=== PATIENT | male | born 1950 | race Caucasian/White ===

== ENCOUNTER 2019-04-02 10:29 | Observation (INO) | payer OTHER ==
[~2019-04-02] VITALS: Ht 177.8 cm; Wt 86.2 kg
[2019-04-02] MEDS ORDERED: MORPHINE SULFATE 2 MG/ML 1ML SYG IVP PRN (14:15)
[2019-04-02] MEDS ORDERED: ONDANSETRON HCL 4 MG/2 ML VIAL IVP PRN (14:15)
[2019-04-02 14:41] LABS: BASOPHILS % (AUTO) 0.2 % (0.0-5.0); EOSINOPHILS % (AUTO) 0.6 % (0.0-8.0); HEMATOCRIT 49.8 % (42-54); MEAN CORPUSCULAR HEMOGLOBIN 34.3 pg (27.0-33.0); MEAN CORPUSCULAR HGB CONC 34.2 g/dL (32.0-36.0); MEAN CORPUSCULAR VOLUME 100.1 fL (79-99); MONOCYTES % (AUTO) 5.9 % (3.0-13.0); NEUTROPHILS % (AUTO) 85.3 % (40.0-77.0); NUCLEATED RED BLOOD CELLS 0.1 % (0.0-0.19); PLATELET COUNT (AUTO) 158 K/uL (130-400); RED BLOOD CELL COUNT(AUTO) 4.97 MIL/uL (4.50-6.20); RED CELL DISTRIBUTION WIDTH 12.4 % (11.0-15.5); WHITE BLOOD COUNT (AUTO) 9.7 K/uL (4.8-10.8)
[2019-04-02 14:48] LABS: CREATININE 1.1 mg/dL (0.5-1.5); CRP QUANTITATIVE 61.3 mg/L (0.00-9.0); POTASSIUM 3.9 mmol/L (3.5-5.1)
[2019-04-02 15:46] LABS: ERYTHROCYTE SEDIMENTATION RATE 10 MM/HR (0-20)
[2019-04-02 15:55] VITALS: BP 145/78
[2019-04-02] MEDS ORDERED: TRAMADOL HCL 50 MG TABLET PO PRN (17:15)
[2019-04-02] MEDS: SODIUM CHLORIDE 0.9% 1000ML 1,000 ML IV SCH (18:07)
[2019-04-02] MEDS ORDERED: CYCLOBENZAPRINE HCL 10 MG TABLET PO SCH (18:10)
[2019-04-02] MEDS ORDERED: ATOR10 PO (18:24)
[2019-04-02] MEDS ORDERED: LEVO50TA11 PO (18:24)
[2019-04-02] MEDS ORDERED: LEVO75TA10 PO (18:24)
[2019-04-02] MEDS ORDERED: LOSA100T58 PO (18:24)
[2019-04-02 19:13] VITALS: BP 105/58
--- NOTE | 2019-04-02 19:30 | NUR ---
MD DR HANSEN IN TO SEE PT. NEW ORDERS GIVEN, PLEASE REFER TO CPOE. WILL MEDICATE PT. Addendum: 04/02/19 at 2242 by JULIEN MORALES RN RN Amended: Links added.
[2019-04-02] MEDS: CYCLOBENZAPRINE HCL 10 MG TABLET PO SCH (20:00)
[2019-04-02] MEDS: DEXAMETHASONE SOD PHOSPHATE 4 MG/ML 1ML VIAL IVP SCH (20:00)
--- NOTE | 2019-04-02 20:00 | NUR ---
MEDS SHIFT ASSESSMENT DONE, PLEASE REFER TO CPOE. DUE MEDS ADMINISTERED, TOLERATED WELL. KEPT RESTED AND COMFORTABLE. CALL LIGHT WITHIN REACH. Addendum: 04/02/19 at 2302 by JULIEN MORALES RN RN Amended: Links added.
--- NOTE | 2019-04-02 22:00 | NUR ---
ROUNDS PT RESTING WELL. NO DISTRESS NOTED. KEPT COMFORTABLE IN BED. CALL LIGHT WITHIN REACH. WILL MONITOR PT.
[2019-04-02 23:52] VITALS: BP 129/90
--- NOTE | 2019-04-03 02:30 | NUR ---
ROUNDS PT SLEPT AT INTERVALS. NO CONCERNS VERBALIZED. DUE MEDS ADMINISTERED, TOLERATED WELL. KEPT COMFORTABLE. WILL MONITOR PT.
[2019-04-03] MEDS: DEXAMETHASONE SOD PHOSPHATE 4 MG/ML 1ML VIAL IVP SCH ×3 (02:31→14:00)
[2019-04-03 04:00] VITALS: BP 119/78
--- NOTE | 2019-04-03 06:15 | NUR ---
ROUNDS PCP ASSISTED PT TO THE RESTROOM THEN BACK TO BED. PT VERBALIZES FEELING BETTER. NO DISTRESS NOTED. KEPT COMFORTABLE. FOR MORE CARE.
[2019-04-03 08:00] VITALS: BP 118/92
[2019-04-03] MEDS: SODIUM CHLORIDE 0.9% 1000ML 1,000 ML IV SCH (10:54)
[2019-04-03] MEDS: CYCLOBENZAPRINE HCL 10 MG TABLET PO SCH (10:54)
--- NOTE | 2019-04-03 11:00 | NUR ---
CM NOTE IN OBS, POSS DC TODAY- WILL DEFER DETAILED CM NOTE UNLESS TRIGGERED BY RN OR PT Addendum: 04/03/19 at 1749 by RUKHSANA MAO RN CM Amended: Links added.
[2019-04-03 11:54] VITALS: BP 119/75
--- NOTE | 2019-04-03 13:49 | NUR ---
RD NOTIFICATION Primary diagnosis: Lumbar spine Radiculopathy. Hx: Compression fracture of spine, Kidney stones, HTN, Thyroid disease, Hyperlipidemia. Current diet is regular. BMI is 27.3; classified as overweight. PO is 25-50% as per pt. Labs: MCV 100, MCH 34.3, CRP 61.3. Meds: Dexamethasone, Cyclobenzaprine, Zofran, Ultram. Pt states he is having much better appetite since fecal impaction procedure. Pt stated he had not had a bowel movement for 2 weeks prior to admission and was having severe pain. Pt lost 15 lbs in the past two weeks due to poor appetite and pain. Pt is now eating better and feeling relieved. Pt LBM was on 04/02. Skin is intact, no edema present. RD recommends to change diet to Heart Healthy. RD will continue to monitor and follow up as needed. Please notify RD if any other nutritional concerns arise. Thank you. Addendum: 04/03/19 at [address] RD Amended: Links added.
== END 2019-04-03 15:38 | disposition home or self-care (01) ==
LOC: EDH 10:29 → EDHIP 13:43 → 4BH 15:28
PROVIDERS: ADMIT Internal Medicine Hematology & Oncology; ATTEND Internal Medicine Hematology & Oncology
DX: M48.56XA Collapsed vertebra, not elsewhere classified, lumbar region, initial encounter for fracture (principal); E07.9 Disorder of thyroid, unspecified; E78.5 Hyperlipidemia, unspecified; I10 Essential (primary) hypertension; K56.41 Fecal impaction; N20.0 Calculus of kidney; Z87.442 Personal history of urinary calculi; Z87.891 Personal history of nicotine dependence; Z90.89 Acquired absence of other organs
CPT/HCPCS: 36415; 72148; 80048; 85025; 85651; 86140; 96374; 96375; 96376; 99284; G0378 ×26; J1100 ×3; J7030

== ENCOUNTER → 2023-09-11 | Outpatient (CLI) | payer OTHER ==
[~2023-09-11] MED LIST: ATOR10 PO; LEVO50TA11 PO; LEVO75TA10 PO; LOSA100T59 PO
== END | disposition home or self-care (01) ==
LOC: RAH 12:55
PROVIDERS: ATTEND Student in an Organized Health Care Education/Training Program
DX: R07.89 Other chest pain (principal)
CPT/HCPCS: 93306

== ENCOUNTER → 2023-09-18 | Outpatient (CLI) | payer OTHER ==
[2023-09-18 12:12] LABS: HEMOGLOBIN A1C 5.1 % (4.0-6.0)
[2023-09-18 13:15] LABS: CHOLESTEROL 134 mg/dL (<200); HDL CHOLESTEROL 72 mg/dL (29-71); LDL DIRECT 73 mg/dL (0-99); TRIGLYCERIDES 30 mg/dL (30-200)
== END | disposition home or self-care (01) ==
LOC: LAB 08:37
PROVIDERS: ATTEND Student in an Organized Health Care Education/Training Program
DX: I10 Essential (primary) hypertension (principal); R07.89 Other chest pain; E78.2 Mixed hyperlipidemia; Z79.899 Other long term (current) drug therapy
CPT/HCPCS: 36415; 80061; 83036